=== PATIENT | male | born 1950 | race Caucasian/White ===

== ENCOUNTER 2020-08-28 21:17 | Emergency (ER) | payer OTHER, MEDICARE ==
--- NOTE | 2020-08-28 21:54 | EDM.PDOC ---
ED HPI GENERAL MEDICAL PROBLEM - General Chief Complaint: Respiratory Problem Stated Complaint: FEVER/COUGH/CHILLS/VOMITING Time Seen by Provider: 08/28/20 21:46 Source of Information: Reports: Patient History Limitations: Reports: No Limitations - History of Present Illness INITIAL COMMENTS - FREE TEXT/NARRATIVE: 70-year-old male presents to the ED with fever reported to be as high as 102 degrees at home starting yesterday morning. Associated mild chills tonight. He reports a cough minimally productive of some sputum usually first thing in the morning when he wakes up. No hemoptysis. Appetite remains fair. Associated headache which she rated was 5 out of 10 but better since taking Tylenol at 2000 hrs. this evening. 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 He has not had COVID-19 vaccine as he does not believe in it. He had a Covid test about 3 weeks ago which was negative. He did vomit once just prior to coming into the ED after drinking some cranberry juice rather fast. He has had no diarrhea. Denies any chest pain. Onset: Sudden Onset Date: 08/27/20 (Awoke with a fever yesterday morning.) Duration: Hour(s):, Constant Location: Reports: Head (Headache), Generalized (Generalized myalgia. Associated headache. Intermittent paroxysmal minimally productive cough.), Other (Vomiting x1.) Quality: Reports: Ache, Other (Generalized myalgia headache decreased appetite fever and chills at home for the last 2 days) Severity: Moderate Improves with: Reports: None Worsens with: Reports: None Context: Denies: Activity, Exercise, Lifting, Sick Contact, Trauma, Other Associated Symptoms: Reports: Cough (Whitish sputum.), cough w sputum, Fever/Chills, Headaches (Fever since yesterday morning. Controlled with Motrin and Tylenol), Loss of Appetite, Malaise, Nausea/Vomiting (Vomited once just prior to coming to the ED after drinking some cranberry juice rather quickly.), Weakness (Mild generalized weakness.). 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 [No Known Home Meds] 08/28/20 [History] Past Medical History Genitourinary History: Reports: Other (See Below) Other Genitourinary History: scrapping of prostate - Infectious Disease History Infectious Disease History: Reports: Chicken Pox Social & Family History - Tobacco Use Tobacco Use Status *Q: Never Tobacco User - Alcohol Use Alcohol Use History: No - Living Situation & Occupation Living situation: Reports: Occupation: Employed ED ROS GENERAL - Review of Systems Review Of Systems: See Below Constitutional: Reports: Fever, Chills, Malaise, Weakness, Fatigue, Decreased Appetite. Denies: Weight Loss HEENT: Reports: No Symptoms Respiratory: Reports: Cough, Sputum (There is no whitish sputum production x2 days. He often states he brings up a little phlegm every morning when he first awakens.). Denies: Shortness of Breath, Wheezing, Pleuritic Chest Pain Cardiovascular: Denies: Chest Pain, Blood Pressure Problem, Dyspnea on Exertion, Edema, Orthopnea, Palpitations, Other Endocrine: Reports: Fatigue GI/Abdominal: Reports: Decreased Appetite (Of the decreased appetite.) : Reports: Frequency, Other (Nocturia x2. Known BPH.) Musculoskeletal: Reports: Back Pain, Joint Pain Skin: Reports: No Symptoms Neurological: Reports: Headache (Headache today. Better since taking Tylenol at 8:00 tonight.) Psychiatric: Reports: No Symptoms Hematologic/Lymphatic: Reports: No Symptoms Immunologic: Reports: No Symptoms ED EXAM, GENERAL - Physical Exam Exam: See Below Exam Limited By: No Limitations General Appearance: Alert, WD/WN, No Apparent Distress, Other (Temperature is currently 35.8 degrees and he does not feel warm to touch. Heart rate was 100 and sinus. Respiratory is 20 with O2 sats of 92 to 94% room air. BP 03/26/1973.) Eye Exam: Bilateral Eye: Normal Inspection, PERRL (No blepharal pallor or scleral icterus.) Ears: Normal TMs Throat/Mouth: Normal Lips, Other (Minimal erythema of the posterior oropharynx.) Head: Atraumatic, Normocephalic Neck: Normal Inspection, Supple, Non-Tender, Full Range of Motion. No: Carotid Bruit, Lymphadenopathy (L), Lymphadenopathy (R) Respiratory/Chest: No Respiratory Distress, Lungs Clear, Normal Breath Sounds, No Accessory Muscle Use. No: Respiratory Distress Cardiovascular: Normal Peripheral Pulses, Regular Rate, Rhythm, No Edema, No Gallop, No JVD, No Murmur, No Rub Peripheral Pulses: 3+: Carotid (L), Carotid (R), Posterior Tibial (L), Posterior Tibial (R), Dorsalis Pedis (L), Dorsalis Pedis (R) GI/Abdominal: Normal Bowel Sounds, Soft, Non-Tender, No Organomegaly, No Distention Back Exam: Normal Inspection, Full Range of Motion. No: CVA Tenderness (L), CVA Tenderness (R), Decreased Range of Motion Extremities: Normal Inspection, Normal Range of Motion, Non-Tender, No Pedal Edema Neurological: Alert, Oriented, CN II-XII Intact, Normal Cognition Psychiatric: Normal Affect, Normal Mood Skin Exam: Warm, Dry, Intact, Normal Color, No Rash Course - Vital Signs Last Recorded V/S: Last Vital Signs Temp 36.1 C 08/29/20 00:25 Pulse 73 08/29/20 00:25 Resp 20 08/29/20 00:25 BP 121/76 08/29/20 00:25 Pulse Ox 97 08/29/20 00:25 - Orders/Labs/Meds Orders: Active Orders 24 hr Category Date Time Status Chest 1V Frontal [CR] Stat Exams 08/28/20 21:55 Taken Labs: Laboratory Tests 08/28/20 08/28/20 08/28/20 Range/Units 22:09 22:09 22:09 WBC 4.86 (4.23-9.07) K/mm3 RBC 4.31 L (4.63-6.08) M/mm3 Hgb 14.8 (13.7-17.5) gm/dl Hct 44.4 (40.1-51.0) % MCV 103.0 H (79.0-92.2) fl MCH 34.3 H (25.7-32.2) pg MCHC 33.3 (32.2-35.5) g/dl RDW Std Deviation 51.3 H (35.1-43.9) fL Plt Count 153 L (163-337) K/mm3 MPV 9.5 (9.4-12.3) fl Neut % (Auto) 82.2 H (34.0-67.9) % Lymph % (Auto) 11.9 L (21.8-53.1) % [place] % (Auto) 5.3 (5.3-12.2) % Eos % (Auto) 0 L (0.8-7.0) Baso % (Auto) 0.4 (0.1-1.2) % Neut # (Auto) 3.99 (1.78-5.38) K/mm3 Lymph # (Auto) 0.58 L (1.32-3.57) K/mm3 [place] # (Auto) 0.26 L (0.30-0.82) K/mm3 Eos # (Auto) 0.00 L (0.04-0.54) K/mm3 Baso # (Auto) 0.02 (0.01-0.08) K/mm3 D-Dimer, Quantitative 5.12 H (0.19-0.50) mg/L Sodium 137 (136-145) mEq/L Potassium 3.9 (3.5-5.1) mEq/L Chloride 101 (98-107) mEq/L Carbon Dioxide 23 (21-32) mEq/L Anion Gap 16.9 H (5-15) BUN 20 H (7-18) mg/dL Creatinine 1.3 (0.7-1.3) mg/dL Est Cr Clr Drug Dosing 53.03 mL/min Estimated GFR (MDRD) 54 (>60) mL/min BUN/Creatinine Ratio 15.4 (14-18) Glucose 153 H (70-99) mg/dL Lactic Acid (0.4-2.0) mmol/L Calcium 7.8 L (8.5-10.1) mg/dL Magnesium 2.0 (1.8-2.4) mg/dL Total Bilirubin 0.3 (0.2-1.0) mg/dL AST 37 (15-37) U/L ALT 30 (16-63) U/L Alkaline Phosphatase 56 (46-116) U/L Lactate Dehydrogenase 204 (85-227) U/L C-Reactive Protein 5.0 H* (<1.0) mg/dL NT-Pro-B Natriuret Pep (0-125) pg/mL Total Protein 6.8 (6.4-8.2) g/dl Albumin 3.3 L (3.4-5.0) g/dl Globulin 3.5 gm/dL Albumin/Globulin Ratio 0.9 L (1-2) SARS-CoV-2 RNA ([facility]) (NEGATIVE) 08/28/20 08/28/20 08/28/20 Range/Units 22:09 22:09 23:58 WBC (4.23-9.07) K/mm3 RBC (4.63-6.08) M/mm3 Hgb (13.7-17.5) gm/dl Hct (40.1-51.0) % MCV (79.0-92.2) fl MCH (25.7-32.2) pg MCHC (32.2-35.5) g/dl RDW Std Deviation (35.1-43.9) fL Plt Count (163-337) K/mm3 MPV (9.4-12.3) fl Neut % (Auto) (34.0-67.9) % Lymph % (Auto) (21.8-53.1) % [place] % (Auto) (5.3-12.2) % Eos % (Auto) (0.8-7.0) Baso % (Auto) (0.1-1.2) % Neut # (Auto) (1.78-5.38) K/mm3 Lymph # (Auto) (1.32-3.57) K/mm3 [place] # (Auto) (0.30-0.82) K/mm3 Eos # (Auto) (0.04-0.54) K/mm3 Baso # (Auto) (0.01-0.08) K/mm3 D-Dimer, Quantitative (0.19-0.50) mg/L Sodium (136-145) mEq/L Potassium (3.5-5.1) mEq/L Chloride (98-107) mEq/L Carbon Dioxide (21-32) mEq/L Anion Gap (5-15) BUN (7-18) mg/dL Creatinine (0.7-1.3) mg/dL Est Cr Clr Drug Dosing mL/min Estimated GFR (MDRD) (>60) mL/min BUN/Creatinine Ratio (14-18) Glucose (70-99) mg/dL Lactic Acid 1.3 (0.4-2.0) mmol/L Calcium (8.5-10.1) mg/dL Magnesium (1.8-2.4) mg/dL Total Bilirubin (0.2-1.0) mg/dL AST (15-37) U/L ALT (16-63) U/L Alkaline Phosphatase (46-116) U/L Lactate Dehydrogenase (85-227) U/L C-Reactive Protein (<1.0) mg/dL NT-Pro-B Natriuret Pep 327 H (0-125) pg/mL Total Protein (6.4-8.2) g/dl Albumin (3.4-5.0) g/dl Globulin gm/dL Albumin/Globulin Ratio (1-2) SARS-CoV-2 RNA ([facility]) Negative (NEGATIVE) - Radiology Interpretation Free Text/Narrative:: 70-year-old male presents to the ED with upper respiratory tract symptoms of paroxysmal cough minimally productive of white to clear sputum. Associated fever for 2 days. Chills. Decreased appetite. Associated headache and mild generalized myalgia. Vomited once prior to coming to the ED after he got chugging some cranberry juice. No diarrhea. Patient has not received any vaccinations for COVID-19 illness as he does not believe in them and does not want vaccination. He had his were both tested for COVID-19 illness 3 weeks ago and were negative at that time. Per patient at the time of exam is afebrile. Lungs are clear to auscultation percussion. But O2 sats reported to be 93 to 94% room air. Pulse is 86 and sinus. Routine labs to be performed. 1 view chest x-ray to be done. Co-COVID-19 screen to be done. - Re-Assessments/Exams Free Text/Narrative Re-Assessment/Exam: 08/28/20 22:31 portable chest x-ray is essentially within normal limits. He is rotated slightly to the left. Heart and mediastinum are normal. No infiltrates appreciated in either lung field. No pleural effusion.Count is normal at 4.86 with 82% neutrophils however. I mild left shift. Hemoglobin 14.8 with hematocrit of 44.4. MCV is elevated at 103.0. Platelet count slightly low at 153,000 08/28/20 22:52 Chemistry reveals a sodium of 137 and a potassium of 3.9. Chloride 101 with a bicarb of 23. Anion gap is 16.9 mildly elevated. BUN is 20 with a creatinine of 1.3 and a GFR of 54. Glucose 153. Lactic acid 1.3. Calcium is slightly low at 7.8. Magnesium is 2.0. Liver function is normal. LDH was 204. C-reactive protein is elevated at 5.0. BNP mildly elevated at 327. Total protein 6.8 with an albumin fraction of 3.3. COVID-19 screen is pending 08/28/20 23:09 D-dimer did come back elevated at 5.12. COVID-19 screen is still pending. 08/29/20 00:02 I was waiting patiently for the results of the COVID-19 screen to come back when it was identified that the COVID-19 screen sampling was never obtained. He will therefore be done at this time. I reassured the patient that the results will be available in about an hour and a quarter or so but he wishes to go home and sleep. He states he is usually up by 5 or 6 in the morning and I will call him after that timeframe with the results. He is a candidate for monoclonal antibody therapy and he would return to the hospital as an outpatient and have infusion carried out later tomorrow morning if so desired. He will continue to use Motrin 600 mg every 6 hours for headache, fever and body ache as needed. 08/29/20 00:52 COVID-19 screen is negative. 08/29/20 06:45: I did speak with Mr. Skinner this morning. He states he slept well all night with no recurrence of fever to his knowledge. Advised him that the COVID-19 screen was negative. Due to his symptoms of fever chills and cough with 82% neutrophils or left shift and an elevated CRP I felt it prudent to place him on antibiotic. Plan will be to place him on doxycycline 100 mg twice daily for the next 8 days. 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 and 1600 hrs. today. Departure - Departure Time of Disposition: 23:59 Disposition: Home, Self-Care 01 Condition: Fair Clinical Impression: Upper respiratory tract infection Qualifiers: URI type: unspecified URI Qualified Code(s): J06.9 - Acute upper respiratory infection, unspecified Acute bronchitis Qualifiers: Bronchitis organism: unspecified organism Qualified Code(s): J20.9 - Acute bronchitis, unspecified - Discharge Information *PRESCRIPTION DRUG MONITORING PROGRAM REVIEWED*: Not Applicable *COPY OF PRESCRIPTION DRUG MONITORING REPORT IN PATIENT ABELINO: Not Applicable Instructions: Viral Respiratory Infection, [id number] Referrals: Emmanuel Massey, DO [Primary Care Provider] - Forms: ED Department Discharge Additional Instructions: Evaluation in the emergency room tonight in regards to development of fever, chills, paroxysmal minimally productive cough with headache and generalized myalgia. The symptoms are highly suggestive of possible COVID-19 illness. Lab test done through the emergency room tonight are suggestive of COVID-19 illness infection. However the test for COVID-19 screen was never carried out by nursing staff as I had anticipated. It has been done now at the time of discharge. My suggestion is to go home and rest, sleep. Motrin 600 mg every 6 hours as needed for headache and/or body ache and/or fever. I will call you later tomorrow morning around 0600 hrs. to give you the results of the COVID-19 screen which will be available here in about an hour and a half. You are a candidate for monoclonal antibody infusion which means we give you immediate antibodies towards the virus which may often help prevent hospitalization and worsening pneumonia development from the viral infection. We will discuss this later tomorrow morning once we know the results of the COVID-19 screen. To get the monitor on IV antibiotic therapy you would have to come back to the hospital for intravenous infusion which takes about an hour and we usually watch you for an hour to make sure there is no allergic response. Sepsis Event Note (ED) - Evaluation Sepsis Screening Result: No Definite Risk - Focused Exam Vital Signs: Vital Signs Temp Pulse Resp BP Pulse Ox 08/29/20 00:25 36.1 C 73 20 121/76 97 08/28/20 21:33 35.8 C L 100 20 122/74 92 L - My Orders Last 24 Hours: My Active Orders 08/28/20 21:55 Chest 1V Frontal [CR] Stat - Assessment/Plan Last 24 Hours: My Active Orders 08/28/20 21:55 Chest 1V Frontal [CR] Stat
--- NOTE | 2020-08-29 08:23 | CR ---
Chest: Portable view of the chest was obtained. Comparison: No prior chest imaging is available. Mild increased density is noted within the right lung base. Mild increased lung markings are noted within the left base. Upper lungs are clear. Heart size and mediastinum are within normal limits. Mild scoliosis is noted within the spine. Scattered degenerative endplate spurring is noted within the mid and lower spine. Impression: 1. Possible minimal pneumonia within the right lung base and left lower lobe bronchitis. Please correlate with patient's symptoms. 2. Other findings which are believed to be chronic as noted above. Diagnostic code #3
== END 2020-08-29 00:25 | disposition home or self-care (01) ==
LOC: JD.ED 21:17
DX: J20.9 Acute bronchitis, unspecified (principal); J06.9 Acute upper respiratory infection, unspecified; Z20.822 Contact with and (suspected) exposure to COVID-19
CPT/HCPCS: 36415; 71045; 71045-26; 80053; 83605; 83615; 83735; 83880; 85025; 85379; 86140; 99283; 99283-25; U0002

== ENCOUNTER 2021-04-06 08:13 | Emergency (ER) | payer OTHER, MEDICARE ==
[2021-04-06] MEDS ORDERED: Sodium Chloride 0.9% 10 ML Syringe FLUSH PRN (08:57)
[2021-04-06] MEDS ORDERED: Ondansetron 4 MG/2 ML SDV IVPUSH ONE (08:57)
[2021-04-06] MEDS ORDERED: Sodium Chloride 0.9% 1,000 ML IV ONE (10:45)
== END 2021-04-06 13:40 | disposition home or self-care (01) ==
LOC: JD.ED 08:13
DX: U07.1 COVID-19 (principal)
CPT/HCPCS: 36415; 71045; 80053; 85025; 85379; 86140; 96374; 99285; J2405; J7030

== ENCOUNTER 2021-04-11 09:59 | Emergency (ER) | payer OTHER, MEDICARE ==
[2021-04-11] MEDS ORDERED: Sodium Chloride 0.9% 1,000 ML IV SCH (10:30)
[2021-04-11] MEDS: Sodium Chloride 0.9% 10 ML Syringe FLUSH PRN ×2 (10:38→12:23)
[2021-04-11] MEDS ORDERED: Sodium Chloride 0.9% 10 ML Syringe FLUSH ONE (11:51)
[2021-04-11] MEDS ORDERED: Iopamidol 755 Mg/ML 100 ML Bottle IVPUSH ONE (11:51)
[2021-04-11] MEDS ORDERED: Sodium Chloride 0.9% 100 ML IV SCH (12:00)
[2021-04-11] MEDS ORDERED: Acetaminophen 325 MG Tab PO ONE (13:16)
== END 2021-04-11 14:00 | disposition home or self-care (01) ==
LOC: JD.ED 09:59
DX: U07.1 COVID-19 (principal); J12.82 Pneumonia due to coronavirus disease 2019
CPT/HCPCS: 36415; 70450; 71045; 71275; 80053; 84484; 85025; 85379; 86140; 93005; 99285; A9270; J7030; Q9967; 93010

== ENCOUNTER 2021-04-12 11:14 | Emergency (ER) | payer MEDICARE, OTHER ==
[2021-04-12] MEDS ORDERED: Ondansetron 4 MG/2 ML SDV IVPUSH ONE (12:09)
[2021-04-12] MEDS ORDERED: Sodium Chloride 0.9% 500 ML IV ONE (12:09)
[2021-04-12] MEDS ORDERED: Ketorolac 15 MG/ML SDV IVPUSH ONE (12:38)
[2021-04-12] MEDS ORDERED: Sodium Chloride 0.9% 10 ML Syringe FLUSH ONE (17:04)
[2021-04-12] MEDS ORDERED: Iopamidol 755 Mg/ML 100 ML Bottle IVPUSH ONE (17:04)
[2021-04-12] MEDS ORDERED: Sodium Chloride 0.9% 100 ML IV SCH (17:15)
[2021-04-12] MEDS ORDERED: Aspirin 81 MG Tab.Chew PO ONE (17:42)
== END 2021-04-12 18:33 ==
LOC: JD.ED 11:14
DX: I63.9 Cerebral infarction, unspecified (principal); R41.0 Disorientation, unspecified; Z86.16 Personal history of COVID-19
CPT/HCPCS: 36415; 70496; 70498; 70551; 80053; 81001; 82947; 83605; 85025; 85652; 86140; 93005; 96374; 96375; 99285; A9270; J1885; J2405; J7030; Q9967